=== PATIENT | female | born 1980 | race Caucasian/White ===

== ENCOUNTER 2018-08-02 17:22 | Emergency (ER) | payer OTHER | END 2018-08-02 18:01 | disposition home or self-care (01) | LOC: E/R 17:22 | DX: F15.10 Other stimulant abuse, uncomplicated (principal); F17.210 Nicotine dependence, cigarettes, uncomplicated; F10.230 Alcohol dependence with withdrawal, uncomplicated | CPT/HCPCS: 99283; Z7502 ==

== ENCOUNTER 2018-08-15 12:10 | Emergency (ER) | payer OTHER ==
[2018-08-15] MEDS ORDERED: HALOPERIDOL 5 MG INJ IM (12:14)
[2018-08-15] MEDS ORDERED: LORAZEPAM 2 MG INJ IV (12:14)
[2018-08-15] MEDS ORDERED: SOD CHLORIDE 0.9% 1,000 ML IV (12:14)
[2018-08-15 12:35] LABS: ADD MAN DIFF? NO
[2018-08-15 12:45] LABS: BASOPHILS % 0.5 % (0.0-2.0); EOSINOPHILS # 0.1 10^3/ul (0.0-0.5); EOSINOPHILS % 1.2 % (0.0-7.0); HEMATOCRIT 40.9 % (37.0-47.0); HEMOGLOBIN 13.6 g/dl (12.0-16.0); LYMPHOCYTES # 2.6 10^3/ul (0.8-2.9); LYMPHOCYTES % 43.3 % (15.0-51.0); MEAN CORPUSCULAR HGB CONC 33.3 g/dl (32.0-37.0); MEAN CORPUSCULAR VOLUME 93.2 fl (82.0-101.0); MEAN PLATELET VOLUME 9.2 fl (7.4-10.4); MONOCYTE # 0.4 10^3/ul (0.3-0.9); MONOCYTES % 7.2 % (0.0-11.0); NEUTROPHIL # 2.9 10^3/ul (1.6-7.5); NEUTROPHILS % 47.6 % (39.0-77.0); PLATELET COUNT 341 10^3/UL (140-415); RED BLOOD COUNT 4.39 10^6/ul (4.20-5.40); RED CELL DISTRIBUTION WIDTH 13.3 % (11.5-14.5)
[2018-08-15 12:57] LABS: ALANINE AMINOTRANSFERASE 25 IU/L (13-69); ALBUMIN 4.3 g/dl (3.3-4.9); ALBUMIN/GLOBULIN RATIO 1.34; ALKALINE PHOSPHATASE 99 IU/L (42-121); ANION GAP 14 (5-13); ASPARTATE AMINO TRANSFERASE 33 IU/L (15-46); BILIRUBIN,INDIRECT 0.2 mg/dl (0-1.1); BILIRUBIN,TOTAL 0.2 mg/dl (0.2-1.3); BLOOD UREA NITROGEN 16 mg/dl (7-20); CALCIUM 8.7 mg/dl (8.4-10.2); CARBON DIOXIDE 23 mmol/L (21-31); CHLORIDE 106 mmol/L (97-110); CREATININE 0.63 mg/dl (0.44-1.00); Estimated GFR > 60 mL/min (>60); GLUCOSE 123 mg/dl (70-220); POTASSIUM 3.4 mmol/L (3.5-5.1); SODIUM 143 mmol/L (135-144); TOTAL PROTEIN 7.5 g/dl (6.1-8.1)
[2018-08-15 13:00] LABS: PROTIME 12.3 Sec (11.9-14.9)
[2018-08-15 13:01] LABS: PARTIAL THROMBOPLASTIN TIME 28.1 Sec (23.0-35.0)
[2018-08-15 13:03] LABS: ACETAMINOPHEN < 10.0 ug/ml (10.0-30.0); SALICYLATE < 1.0 mg/dl (5.0-30.0)
== END 2018-08-15 14:49 | disposition left against medical advice (07) ==
LOC: E/R 12:10
DX: F10.920 Alcohol use, unspecified with intoxication, uncomplicated (principal); Z87.891 Personal history of nicotine dependence
CPT/HCPCS: 80053; 80307; 85025; 85610; 85730; 99283

== ENCOUNTER 2018-09-19 14:03 | Emergency (ER) | payer OTHER | END 2018-09-19 14:42 | disposition home or self-care (01) | LOC: E/R 14:03 | DX: F10.920 Alcohol use, unspecified with intoxication, uncomplicated (principal); Z87.891 Personal history of nicotine dependence | CPT/HCPCS: 99282; Z7502 ==

== ENCOUNTER 2018-09-19 19:15 | Emergency (ER) | payer OTHER ==
[2018-09-19] MEDS: OLANZAPINE 10 MG VIAL IM (20:03)
== END 2018-09-20 02:37 | disposition home or self-care (01) ==
LOC: E/R 09-20 02:37
DX: R45.1 Restlessness and agitation (principal); R40.2142 Coma scale, eyes open, spontaneous, at arrival to emergency department; R40.2362 Coma scale, best motor response, obeys commands, at arrival to emergency department; R40.2252 Coma scale, best verbal response, oriented, at arrival to emergency department; Z59.0 Homelessness; Z87.891 Personal history of nicotine dependence
CPT/HCPCS: 96372; 99284-25